=== PATIENT | female | born 1960 | race Caucasian/White ===

== ENCOUNTER 2018-11-12 04:47 | Emergency (ER) | payer BC ==
--- NOTE | 2018-11-12 05:15 | EDPHY ---
H & P Time Seen by Provider: 11/12/18 05:00 HPI/ROS: Chief Complaint: Hypoglycemia HPI: 57-year-old woman with a history of chronic pancreatitis secondary to hypercalcemia from parathyroid disease. Patient has been having worsening pancreatic function for the last year and is actually on the schedule for a Whipple procedure. She also has a history of diabetes secondary to her pancreatic disease. She had been taking only Toujeo, 25 units daily. Patient was seen by her cyber operator yesterday. She started taking Humalog 3 units every 4 hr. She is doing this while ingesting only nutritional shakes. Patient took her usual long-acting insulin at noon yesterday. At 6:00 p.m. She took 3 units of Humalog and again at 10:00 p.m. took 3 units of Humalog. She woke at about 230 this morning and checked her blood sugar was 280. She then decided to take 3 units of Humalog. About an hour later she was feeling very unwell in checked her blood sugar which was 47. She called 911. Patient states she is very unclear as to when she is supposed to be taking her Humalog and what dosages. She is not sure what to do if she is running high. She states she was not provided with a sliding scale by her cyber operator, Dr. Kim. On EMS arrival the patient is blood sugar was in the 40s. She was given oral sugar. An IV was placed and she was given 100 mL of D10. Repeat blood sugar was up to 238. Patient is now awake and alert. She states she is very confused about proper insulin dosing is this is a 1st that she has been taking short-acting insulin. Denies any fevers or chills, cough, nausea, vomiting, or any other concerns. She does state that she did take oxycodone 5 mg before going to bed as well. ROS: 10 systems were reviewed and were negative except those elements noted in the HPI. PMH: Pancreatitis secondary to hypercalcemia from parathyroid disease, insulin- dependent diabetes Social History: No smoking, no alcohol, medical marijuana Family History: non-contributory Physical Exam: Gen: Awake, Alert, No Distress HEENT: Nose: no rhinorrhea Eyes: PERRLA, EOMI Mouth: Moist mucosa Neck: Supple, no JVD Chest: nontender, lungs clear to auscultation Heart: S1, S2 normal, no murmur Abd: Soft, non-tender, no guarding Back: no CVA tenderness, no midline tenderness Ext: no edema, non-tender Skin: no rash Neuro: CN II-XII intact, Sensation grossly intact, Strength 5/5 in bilateral upper and lower extremities - Medical/Surgical History Hx Asthma: Yes Hx Chronic Respiratory Disease: No Hx Diabetes: Yes Hx Cardiac Disease: No Hx Renal Disease: No Hx Cirrhosis: No Hx Alcoholism: No Hx HIV/AIDS: No Hx Splenectomy or Spleen Trauma: No Other PMH: asthma, dm, gastroparesis. no hx intubations - Social History Smoking Status: Never smoked Constitutional: Initial Vital Signs Temperature (C) 36.5 C 11/12/18 05:10 Heart Rate 85 11/12/18 05:10 Respiratory Rate 20 11/12/18 05:10 Blood Pressure 130/83 H 11/12/18 05:10 O2 Sat (%) 95 11/12/18 05:10 O2 Delivery Mode Room Air Allergies/Adverse Reactions: No Known Allergies Allergy (Unverified 11/12/18 05:07) Home Medications: Medication Instructions Recorded Albuterol Sulfate [Albuterol 1 - 2 puffs IH Q1 PRN 01/10/14 Inhaler Hfa] Aspirin [Aspirin 325 mg (*)] 650 mg PO Q2D 01/10/14 DULoxetine [Cymbalta 60 MG (*)] 60 mg PO HS 01/10/14 Esomeprazole Mag Trihydrate 40 mg PO HS 01/10/14 [Nexium] predniSONE 100 mg PO PRN PRN 01/10/14 Azithromycin [Zithromax] 250 mg PO DAILY #3 tab 01/13/14 Cetirizine [ZyrTEC 10 mg (RX)] 10 mg PO DAILY #30 tab 01/13/14 Fluticasone/Salmeter 500/50Mcg 1 puffs IH BID #1 disk 01/13/14 [Advair 500/50 (*)] LANCETS [MICRO THIN LANCETS] 1 each MC ACHS #100 01/13/14 Levalbuterol 1.25 mg [Xopenex 1.25 mg IH QID #100 deyvial 01/13/14 1.25MG Neb (*)] Levalbuterol Inhaler [Xopenex Hfa 1 puffs IH TID PRN #1 mdi 01/13/14 Inhaler (RX)] metFORMIN HCL [Glucophage 500 mg 500 mg PO BIDMEAL #60 tab 01/13/14 (*)] predniSONE 40 mg PO DAILY #7 tablet 01/13/14 Albuterol Sulfate [Albuterol 2 puffs IH DAILY 10/22/14 Inhaler Hfa] Esomeprazole Mag Trihydrate 40 mg PO DAILY 10/22/14 [Nexium] Albuterol Sulfate [Albuterol 2 puffs IH Q4 PRN 10/23/14 Inhaler Hfa] Aspirin EC [Aspirin EC 325 mg (*)] 650 mg PO HS 10/23/14 DULoxetine [Cymbalta 60 MG (*)] 120 mg PO HS 10/23/14 Fluticasone Nasal [Flonase Nasal 1 sprays [place] DAILY PRN 10/23/14 [place]] metFORMIN HCL [Glucophage 500 mg 500 mg PO BIDMEAL #60 tab 10/23/14 (*)] predniSONE 10 mg PO DAILY #21 tab 10/23/14 predniSONE 80 mg PO DAILY PRN 10/23/14 Medical Decision Making ED Course/Re-evaluation: Patient's blood sugar in the emergency department is 313. Patient is very confused about what insulin she should be taking and how much. She is continuing to take metformin. Clearly up until yesterday her blood sugars were not ideal but have been managing okay. Plan will be to check her chemistry and recheck her blood sugar in a little while. Will have her hold her short-acting insulin until she can follow up with her cyber operator later today. Repeat blood sugar 169. Will re-evaluate and 30 min to make sure she is not going low. Repeat blood sugars 117. Will p.o. Challenge here. Will need a repeat blood sugar. As long as she is maintaining wheel to send her home with follow-up with her cyber operator. Patient signed out to Dr. Murdock pending repeat blood sugar check. - Data Points Laboratory Results: Laboratory Results 11/12/18 05:20 11/12/18 05:20 11/12/18 11/12/18 11/12/18 06:49 06:21 05:20 WBC RBC Hgb Hct MCV MCH MCHC RDW Plt Count MPV Neut % (Auto) Lymph % (Auto) [place] % (Auto) Eos % (Auto) Baso % (Auto) Nucleat RBC Rel Count Absolute Neuts (auto) Absolute Lymphs (auto) Absolute Monos (auto) Absolute Eos (auto) Absolute Basos (auto) Absolute Nucleated RBC Immature Gran % Immature Gran # Sodium 137 mEq/L mEq/L (135-145) Potassium 4.2 mEq/L mEq/L (3.5-5.2) Chloride 104 mEq/L mEq/L (97-110) Carbon Dioxide 24 mEq/l mEq/l (22-31) Anion Gap 9 mEq/L mEq/L (6-14) BUN 24 mg/dL H mg/dL (7-23) Creatinine 0.5 mg/dL L mg/dL (0.6-1.0) Estimated GFR > 60 Glucose 302 mg/dL H mg/dL (70-100) POC Glucose 117 mg/dL H mg/dL 169 mg/dL H mg/dL (70-100) (70-100) Calcium 9.0 mg/dL mg/dL (8.5-10.4) 11/12/18 11/12/18 05:20 05:07 WBC 7.10 10^3/uL 10^3/uL (3.80-9.50) RBC 5.41 10^6/uL H 10^6/uL (4.18-5.33) Hgb 15.5 g/dL g/dL (12.6-16.3) Hct 46.9 % % (38.0-47.0) MCV 86.7 fL fL (81.5-99.8) MCH 28.7 pg pg (27.9-34.1) MCHC 33.0 g/dL g/dL (32.4-36.7) RDW 12.2 % % (11.5-15.2) Plt Count 334 10^3/uL 10^3/uL (150-400) MPV 9.2 fL fL (8.7-11.7) Neut % (Auto) 57.0 % % (39.3-74.2) Lymph % (Auto) 22.7 % % (15.0-45.0) [place] % (Auto) 9.4 % % (4.5-13.0) Eos % (Auto) 9.4 % H % (0.6-7.6) Baso % (Auto) 0.7 % % (0.3-1.7) Nucleat RBC Rel Count 0.0 % % (0.0-0.2) Absolute Neuts (auto) 4.04 10^3/uL 10^3/uL (1.70-6.50) Absolute Lymphs (auto) 1.61 10^3/uL 10^3/uL (1.00-3.00) Absolute Monos (auto) 0.67 10^3/uL 10^3/uL (0.30-0.80) Absolute Eos (auto) 0.67 10^3/uL H 10^3/uL (0.03-0.40) Absolute Basos (auto) 0.05 10^3/uL 10^3/uL (0.02-0.10) Absolute Nucleated RBC 0.00 10^3/uL 10^3/uL (0-0.01) Immature Gran % 0.8 % % (0.0-1.1) Immature Gran # 0.06 10^3/uL 10^3/uL (0.00-0.10) Sodium Potassium Chloride Carbon Dioxide Anion Gap BUN Creatinine Estimated GFR Glucose POC Glucose 313 mg/dL H mg/dL (70-100) Calcium Point of Care Test Results: Chemistry 11/12/18 11/12/18 11/12/18 06:49 06:21 05:07 POC Glucose 117 mg/dL H mg/dL 169 mg/dL H mg/dL 313 mg/dL H mg/dL (70-100) (70-100) (70-100) Departure - Departure Disposition: Home, Routine, Self-Care Clinical Impression: Hypoglycemia Condition: Good Instructions: Hypoglycemia in a Person with Diabetes (ED) Additional Instructions: Do not take your Humalog insulin again until you follow up with your cyber operator. You should continue taking your Toujeo daily. Follow-up with your cyber operator later today for instructions on how to manage her blood sugar with short-acting insulin. Return to the emergency department for further episodes of low blood sugar, vomiting, or any other concerns. Referrals: Santi Jacobsen MD [Primary Care Provider] - As per Instructions
[2018-11-12 05:40] LABS: PLATELET COUNT 334 10^3/uL (150-400)
[2018-11-12 08:27] VITALS: BP 113/79
== END 2018-11-12 08:27 | disposition home or self-care (01) ==
LOC: EDUNIT#
DX: E11.649 Type 2 diabetes mellitus with hypoglycemia without coma (principal); K86.1 Other chronic pancreatitis